=== PATIENT | male | born 1950 | race Caucasian/White ===

== ENCOUNTER 2025-06-27 14:55 | Emergency (ER) | payer BC, MEDICARE ==
[2025-06-27 15:08] VITALS: BP 115/67; PULSE 123
[2025-06-27 16:00] LABS: BASOPHILS ABSOLUTE AUTO 0.05 K/uL (0.00-0.10); BASOPHILS PERCENT AUTO 0.5 % (0.1-1.3); EOSINOPHILS ABSOLUTE AUTO 0.03 K/uL (0.00-0.40); EOSINOPHILS PERCENT AUTO 0.3 % (0.0-5.4); IMMATURE GRAN ABSOLUTE AUTO 0.04 K/uL (0.00-0.23); IMMATURE GRAN PERCENT AUTO 0.4 % (0.0-0.7); LYMPHOCYTES ABSOLUTE AUTO 0.28 K/uL (0.8-3.3); LYMPHOCYTES PERCENT AUTO 2.7 % (11.4-47.7); MONOCYTES ABSOLUTE AUTO 0.52 K/uL (0.20-0.90); MONOCYTES PERCENT AUTO 4.9 % (3.3-12.6); NEUTROPHILS ABSOLUTE AUTO 9.64 K/uL (1.0-7.6); NEUTROPHILS PERCENT AUTO 91.2 % (40.0-78.1); PLATELET COUNT,PLT 187 K/uL (130-375); RED BLOOD CELL COUNT 3.54 M/uL (4.14-5.76); WHITE BLOOD CELL COUNT,WBC 10.6 K/uL (3.2-11.0)
[2025-06-27 16:23] LABS: A/G RATIO 1.2 (1.2-2.2); ALANINE AMINOTRANSFERASE,ALT 58 U/L (12-78); ASPARTATE AMNIOTRANSFERASE,AST 77 U/L (15-37); BILIRUBIN TOTAL 0.5 mg/dL (0.2-1.0); BLOOD UREA NITROGEN,BUN 20 mg/dL (7-18); CARBON DIOXIDE,CO2 26 mmol/L (21-32); CHLORIDE,CL 102 mmol/L (100-108); CREATININE 1.6 mg/dL (0.8-1.3); EST CRCL DRUG DOSING (CG) 37.21 mL/min; ESTIMATED GFR 45 mL/min (>60); GLUCOSE RANDOM 202 mg/dL (74-106); POTASSIUM,K 3.5 mmol/L (3.6-5.2); PROTEIN TOTAL,TP 6.7 g/dL (6.4-8.2); SODIUM,NA 138 mmol/L (140-148); TROPONIN I HIGH SENSITIVITY 7.1 pg/mL (<=60.3)
== END 2025-06-27 18:00 | disposition home or self-care (01) ==
LOC: JP.ED 14:55
DX: R00.2 Palpitations (principal); R50.9 Fever, unspecified; E78.00 Pure hypercholesterolemia, unspecified; Z91.030 Bee allergy status; Z79.899 Other long term (current) drug therapy
CPT/HCPCS: 36415; 71045; 80053; 84484; 85025; 93005; 96360; 99285; A9270; J7030; 93010; 99284